=== PATIENT | female | born 1955 | race Caucasian/White ===

== ENCOUNTER 2025-08-27 17:57 | Emergency (ER) | payer OTHER, SELFPAY ==
[2025-08-27 18:00] VITALS: BP 153/80
--- NOTE | 2025-08-27 20:32 | ED.SKININJ ---
HPI-Injury
General
Chief Complaint: Skin Problem
Source: patient
Exam Limitations: none
Time Seen by Provider: 08/27/25 19:51
Nursing documentation reviewed up to this point in time: agreed with
History of Present Illness-Injury
Initial Injury comments:
70-year-old female with history of COPD, exocrine pancreatic insufficiency on chronic steroids, now budesonide 3 mg daily, HTN, HLD, neuropathy in her feet, presents for wound on her anterior left ankle. She was carrying a plastic bag full of
canned groceries into her house on 08/18 when the bag broke and the cans spilled out causing skin tears of the anterior aspect of her left ankle and also the dorsal aspect of her left forearm. Also hit her left big toe. She initially cleansed the
wounds, applied Neosporin and wrapped them.
She went to urgent care on 08/19 had a negative toe x-ray, they cleansed her wounds and wrapped them and told her not to unwrap them for 4 days. When she unwrapped them on 1016 there was redness around the ankle wounds, she went back to urgent care
and they told her to leave the wounds open to air and started her on doxycycline which she has had 4 doses.
The area continued to get more red and tender so she went back to urgent care today and they gave her prescription for Bactrim which she has not started yet.
She is here now because she is concerned about the amount of redness and pain despite antibiotics.
She denies fever or chills. The scabs on her left forearm are drying up and the area is healing well.
Past History
Past History
ED Past Medical History: COPD, CVA and Other (EPI,)
Social History
Tobacco: Non-smoker
Alcohol: Occasional
Personal: Single
Living: with family
Review of Systems
Review of Systems
Allergies reviewed?: Yes
All Other Systems: ROS reviewed and negative except as documented in HPI and ROS
Phy Exam
Physical Exam
Physical Exam:
PHYSICAL EXAMINATION:
General: no apparent distress, not acutely ill
Neuro: alert and oriented.
Psychiatric: well kept. interactive and cooperative
Cardiac: RRR
Lungs: CTA
Musculoskeletal: Moves with ease
Skin: Warm, pink. There is an 8 cm x 7 cm reddened area on the anterior aspect of the left ankle. In the center of this area are 2 wounds 1 is 4 cm x 2 cm the other 1 is 2 cm x 2 cm. They are covered with thick mushy eschar
and yellowish exudate. The area has been marked for observation
Course
Vital Signs
Initial and Last Documented VS:
Initial Vital Signs
Temp Pulse Resp BP Pulse Ox
97.9 F 84 16 153/80 97
08/27/25 18:00 08/27/25 18:00 08/27/25 18:00 08/27/25 18:00 08/27/25 18:00
Last Documented Vital Signs
Temp Pulse Resp BP Pulse Ox
97.9 F 84 16 153/80 97
08/27/25 18:00 08/27/25 18:00 08/27/25 18:00 08/27/25 18:00 08/27/25 20:33
MDM/Problems Addressed
Differential Diagnosis Includes:
wound infection, cellulitis
MDM/Problems Addressed:
70-year-old female with history of COPD, exocrine pancreatic insufficiency on chronic steroids, now budesonide 3 mg daily, HTN, HLD, neuropathy in her feet, presents for wound on her anterior left ankle. She was carrying a plastic bag full of
canned groceries into her house on 08/18 when the bag broke and the cans spilled out causing skin tears of the anterior aspect of her left ankle and also the dorsal aspect of her left forearm. Also hit her left big toe. She initially cleansed the
wounds, applied Neosporin and wrapped them.
She went to urgent care on 08/19 had a negative toe x-ray, they cleansed her wounds and wrapped them and told her not to unwrap them for 4 days. When she unwrapped them on 1016 there was redness around the ankle wounds, she went back to urgent care
and they told her to leave the wounds open to air and started her on doxycycline which she has had 4 doses.
The area continued to get more red and tender so she went back to urgent care today and they gave her prescription for Bactrim which she has not started yet.
She is here now because she is concerned about the amount of redness and pain despite antibiotics.
She denies fever or chills. The scabs on her left forearm are drying up and the area is healing well.
Afebrile, NAD
The wounds on the left forearm are healing well, the scabs are intact, no surrounding redness
The wounds on the anterior aspect of the left ankle were debrided of eschar and thick yellowish material and good healthy pink granulation tissue was exposed. No active bleeding. This area was then cleansed with normal saline, dried, antibiotic
oint and nonstick and sterile gauze dressings applied.
Proper wound care discussed with patient and her daughter who is at bedside.
Plan: Daily wound care, continue doxycycline and Bactrim. Reddened area with marked with a marker for observation, return here for worsening symptoms.
Chronic conditions affecting care: Other (COPD and EPI, on steroids)
*Pulse Oximetry
SaO2: 97
Oxygen Mode of Delivery: Room air
Patient hypoxic: not evaluated
*Critical Care Note
Total Time (30-74mins, 75-104mins- exclusive of procedures): Not Applicable
ED Attending Note
-
Portions of this chart may have been created with voice recognition software.� Occasional wrong word or��sound alike� substitutions may have occurred due to the inherent limitations of voice recognition software.
Discharge Plan
Departure
Patient Disposition: Home (Routine Discharge)
Date of Disposition: 08/27/25
Time of Disposition: 20:44
Patient with high blood pressure during this ER visit?: No
Condition: Good
Discharge Problem:
Wound of left ankle
Instructions: Wound Care (DC)
Referrals:
Jamie Valenzuela MD [Family Provider, Internal Medicine] - As needed
Activity Restrictions/Additional Instructions:
As we discussed, finish the doxycycline and the Bactrim.
Rest as much as you can in the next 2 days with the leg elevated to the level of your heart
Remove the dressing on Friday, then you may shower as usual, pat the area dry, apply a thin layer of antibiotic ointment then the nonstick and then the gauze dressing
Do this daily until the wound is well-healed
During the times that you are resting while awake, for instance laying around watching TV or reading you may open the area to air to let it dry out.
Keep it clean dry and covered at all times when up and around
Seek medical care immediately if the red area spreads more than 2 inches in any direction from the area marked, help with fever or chills or increasing pain or swelling or feeling sicker in any way
Interventions
Interventions:
*Risk Screen - Suicide Last Done: 08/27/25 18:00
*General Assessment Last Done: 08/27/25 21:21
*Neglect/Abuse Screening Last Done: 08/27/25 18:00
*ED- Fall Risk Assessment Last Done: 08/27/25 21:21
*ED COVID-19 Vaccine History Last Done: 08/27/25 21:21
*ED Influenza Vaccine History Last Done: 08/27/25 21:21
*Nursing Disposition Last Done: 08/27/25 21:22
ED-Skin Assessment Last Done: 08/27/25 21:21
Discharge Date and Time
Discharge Date/Time: 08/27/25 21:23
Print Language: [id number]
== END 2025-08-27 21:23 | disposition home or self-care (01) ==
LOC: EMR 17:57
PROVIDERS: EMERGENCY PHYSICIAN Emergency Medicine; FAMILY PHYSICIAN Internal Medicine
DX: S91.002A Unspecified open wound, left ankle, initial encounter (principal); W22.8XXA Striking against or struck by other objects, initial encounter; J44.9 Chronic obstructive pulmonary disease, unspecified; Z86.73 Personal history of transient ischemic attack (TIA), and cerebral infarction without residual deficits; E78.5 Hyperlipidemia, unspecified; I10 Essential (primary) hypertension; G62.9 Polyneuropathy, unspecified
CPT/HCPCS: 99282

== ENCOUNTER → 2025-10-28 07:51 | Outpatient (REF) | payer OTHER, SELFPAY | LOC: HWRCS 07:51 | PROVIDERS: ATTENDING PHYSICIAN Internal Medicine Interventional Cardiology; FAMILY PHYSICIAN Internal Medicine | DX: R06.02 Shortness of breath (principal); I25.10 Atherosclerotic heart disease of native coronary artery without angina pectoris | CPT/HCPCS: 78452; 93017; A9500; J2785 ==